=== PATIENT | male | born 1970 | race Caucasian/White ===

== ENCOUNTER 2020-04-21 17:50 | Emergency (ER) | payer SELFPAY ==
[~2020-04-21] VITALS: Ht 165.1 cm; Wt 77.1 kg
[2020-04-21 17:54] VITALS: BP 130/95
--- NOTE | 2020-04-21 18:00 | NUR ---
BIBA TO BED 12
--- NOTE | 2020-04-21 18:20 | NUR ---
Patient discharged with v/s stable. Written and verbal after care instructions given and explained. Patient verbalized understanding. Ambulatory with steady gait. REFUSED TO SIGN D/C PAPERWORK. All questions addressed prior to discharge. Advised to follow up with PMD.
--- NOTE | 2020-04-21 18:20 | NUR ---
PT SEEN AND D/C BY SONYA LANE. NO NURSING CARE PROVIDED.
[2020-04-21 18:37] VITALS: BP 130/95
== END 2020-04-21 18:20 | disposition home or self-care (01) ==
LOC: MED 17:50
DX: M79.672 Pain in left foot (principal)
CPT/HCPCS: 99283